=== PATIENT | female | born 1995 | race Hispanic/Latino ===

== ENCOUNTER 2017-03-06 13:53 | Inpatient (IN) | payer OTHER ==
[2017-03-06] VITALS (11 sets, daily range): BP systolic 119–141; BP diastolic 72–91
[~2017-03-06] VITALS: Ht 167.6 cm; Wt 67.7 kg
[2017-03-06] MEDS ORDERED: PRENATABS FA T1 EACH PO (14:56)
[2017-03-06 16:29] LABS: EOSINOPHIL (%) 0.6 % (0-5); EOSINOPHIL COUNT 0.1 K/uL (0-0.3); HEMATOCRIT 35.3 % (36.0-46.0); IMMATURE GRANULOCYTE (%) 0.5 % (0.0-0.7); IMMATURE GRANULOCYTE COUNT 0.1 K/uL; INSTRUMENT ABS NEUTROPHIL CT 8.6 K/uL; LYMPHOCYTE COUNT 2.5 K/uL (1.0-2.8); MCH 32.2 PG (29.0-34.0); MCHC 33.7 G/DL (30.0-36.0); MCV 95.4 FL (83-99); MEAN PLAT.VOLUME 12.7 uM^3 (9.5-12.4); MONOCYTE (%) 5.8 % (3-12); MONOCYTE COUNT 0.7 K/uL (0-0.8); NEUTROPHIL (%) 71.9 % (45-76); NEUTROPHIL COUNT 8.6 K/uL (1.8-6.4); PLATELET COUNT 225 K/uL (156-360); RBC DIS.WIDTH-CV 13.1 % (11.8-14.6); RBC DIS.WIDTH-SD 45.1 % (39-53); WHITE BLOOD COUNT 11.9 K/uL (4.1-10.2)
[2017-03-06 16:43] LABS: ANION GAP 10 MEQ/L (2-14); CHLORIDE 104 MEQ/L (99-109); POTASSIUM 4.1 MEQ/L (3.7-5.4); SAMPLE HEMOLYSIS CHECK 0; SAMPLE ICTERIC CHECK 0; SAMPLE LIPEMIA CHECK 0; SODIUM 133 MEQ/L (136-147); TOTAL BILIRUBIN 0.3 MG/DL (0.0-1.0)
[2017-03-06 16:49] LABS: ALKALINE PHOSPHATASE 176 IU/L (3-129); GFR ESTIMATE (CALCULATED) > 59 mL/min/; GLUCOSE 78 mg/dL (70-99); LACTATE DEHYDROGENASE 118 IU/L (20-246); UREA NITROGEN (BUN) 8 mg/dL (9-23); URIC ACID 4.7 mg/dL (3.1-9.2)
[2017-03-06 17:06] LABS: UR CREATININE CONCENTRATION 90.2 MG/DL
[2017-03-07] VITALS (21 sets, daily range): BP systolic 109–143; BP diastolic 59–82
[2017-03-08 06:37] VITALS: BP 128/70
[2017-03-08 07:36] LABS: EOSINOPHIL (%) 0.7 % (0-5); EOSINOPHIL COUNT 0.1 K/uL (0-0.3); IMMATURE GRANULOCYTE (%) 0.4 % (0.0-0.7); IMMATURE GRANULOCYTE COUNT 0.1 K/uL; LYMPHOCYTE COUNT 2.9 K/uL (1.0-2.8); MCHC 32.5 G/DL (30.0-36.0); MCV 95.2 FL (83-99); MEAN PLAT.VOLUME 12.5 uM^3 (9.5-12.4); MONOCYTE (%) 5.2 % (3-12); MONOCYTE COUNT 0.7 K/uL (0-0.8); NEUTROPHIL (%) 72.4 % (45-76); PLAT.SUFFICIENCY DECREASED; RBC DIS.WIDTH-CV 13.5 % (11.8-14.6); RBC DIS.WIDTH-SD 47.2 % (39-53); WHITE BLOOD COUNT 13.8 K/uL (4.1-10.2)
[2017-03-08 07:37] LABS: PLATELET COUNT 151 K/uL (156-360); RED BLOOD COUNT 2.94 M/uL (3.80-5.20)
[2017-03-08 14:40] VITALS: BP 124/85
[2017-03-08 22:13] VITALS: BP 128/87
[2017-03-09 08:45] VITALS: BP 132/83
== END 2017-03-09 17:00 | disposition home or self-care (01) | DRG 775 ==
LOC: LDRP-OP → 2WEST 13:54 → LDRP-OP 03-29 14:46
PROVIDERS: Advanced Practice Midwife
PROC: 3E033VJ Introduction of Other Hormone into Peripheral Vein, Percutaneous Approach (ICD-10-PCS; principal; 2017-03-06)
PROC: 10E0XZZ Delivery of Products of Conception, External Approach (ICD-10-PCS; 2017-03-07)
PROC: 4A1H74Z Monitoring of Products of Conception, Cardiac Electrical Activity, Via Natural or Artificial Opening (ICD-10-PCS; 2017-03-07)
PROC: 3E0S3BZ Introduction of Anesthetic Agent into Epidural Space, Percutaneous Approach (ICD-10-PCS; 2017-03-07)
PROC: 00HU33Z Insertion of Infusion Device into Spinal Canal, Percutaneous Approach (ICD-10-PCS; 2017-03-07)
DX: O48.0 Post-term pregnancy (principal); O41.03X0 Oligohydramnios, third trimester, not applicable or unspecified; O63.0 Prolonged first stage (of labor); O76 Abnormality in fetal heart rate and rhythm complicating labor and delivery; O99.03 Anemia complicating the puerperium; D62 Acute posthemorrhagic anemia; Z3A.41 41 weeks gestation of pregnancy; Z37.0 Single live birth
CPT/HCPCS: 80053; 82570; 83615; 84156; 84550; 85025; 86850; 86900; 86901; C1755; G0378; J0595; J3010; J7120; Q0169